=== PATIENT | female | born 1990 | race Two or more races ===

== ENCOUNTER 2017-05-22 20:27 | Emergency (ER) | payer OTHER ==
[~2017-05-22] VITALS: Ht 157.5 cm; Wt 56.4 kg
[2017-05-22 20:58] LABS: HEMATOCRIT 44.5 % (34.6-47.8); HEMOGLOBIN 15.2 g/dL (11.7-16.4); WHITE BLOOD COUNT 11.9 x10^3/uL (3.4-10)
[2017-05-22] MEDS ORDERED: ONDANSETRON 2MG/ML, 2ML ONE (21:00)
[2017-05-22] MEDS ORDERED: ONDANSETRON 2MG/ML, 2ML IVPush ONE (21:00)
[2017-05-22] MEDS ORDERED: SODIUM CHLORIDE FLUSH 10ML SYR IVF ONE (21:00)
[2017-05-22] MEDS ORDERED: SODIUM CHLORIDE 0.9% 1,000ML IVBOLUS ONE (21:00)
[2017-05-22 21:11] LABS: ASPARTATE AMINO TRANSFERASE 27 U/L (15-37); BLOOD UREA NITROGEN 13 mg/dL (7-18)
[2017-05-22 22:35] VITALS: BP 116/72
== END 2017-05-22 22:42 | disposition home or self-care (01) ==
LOC: ED 22:36
DX: R11.2 Nausea with vomiting, unspecified (principal)
CPT/HCPCS: 36415; 80053; 81001; 83690; 84703; 85025; 87086; 96361; 96374; 99284; J2405; J7030

== ENCOUNTER → 2019-07-15 | Outpatient (CLI) | payer OTHER | END | disposition home or self-care (01) | LOC: CFH 15:56 | PROVIDERS: ATTEND Nurse Practitioner Family | DX: J38.3 Other diseases of vocal cords (principal) | CPT/HCPCS: 70490 ==